=== PATIENT | female | born 1970 | race Caucasian/White ===

== ENCOUNTER 2021-07-28 18:28 | Emergency (ER) | payer OTHER, SELFPAY ==
--- NOTE | 2021-07-28 18:35 | ED.EPISTAXIS ---
HPI - Epistaxis General Chief complaint: Epistaxis Stated complaint: coughing blood, nose bleed Source: patient and RN notes reviewed Mode of arrival: ambulatory Limitations: no limitations History of Present Illness HPI Narrative: patient states that she was sitting at home when she felt something in the back of her throat, she coughed and noticed blood on the tissue. She then wipe her nose and noticed that there was blood coming out of her left nostril. She came here to get it evaluated but she says it is no longer bleeding. She had a history of some vertigo with fluid behind her eardrum and was put on Flonase. She has stayed on the Flonase even though her ear symptoms have resolved. MD complaint: epistaxis Location: left nostril Onset (ago): hour(s) (1) Duration: now resolved Treatment prior to arrival: other (None) Related Data Home Medications Medication Instructions Recorded Confirmed acyclovir 400 mg PO TID 11/08/19 11/08/19 amitriptyline 25 mg PO DAILY 11/08/19 11/08/19 atorvastatin 20 mg PO DAILY 11/08/19 11/08/19 estradiol 1 mg PO DAILY 11/08/19 11/08/19 lisinopril 20 mg PO BID 11/08/19 11/08/19 omeprazole 20 mg PO DAILY 11/08/19 11/08/19 promethazine 12.5 mg PO TID PRN 11/08/19 11/08/19 Allergies Allergy/AdvReac Type Severity Reaction Status Date / Time amoxicillin Allergy Nausea and Verified 07/28/21 18:56 Vomiting codeine Allergy Rash Verified 11/08/19 22:15 doxycycline [From Vibramycin] Allergy Hives Verified 07/28/21 18:56 Penicillins Allergy Rash Verified 11/08/19 22:15 hydrocodone AdvReac Nausea and Verified 07/28/21 18:56 Vomiting Review of Systems Review of Systems: All systems reviewed & are unremarkable except as noted in HPI and below Constitutional: Constitutional: Denies chills and Denies fever(s) PMFSH Past Medical History Medical History (Updated 07/28/21 @ 19:02 by Silviano Borrero MD) Burning mouth syndrome Depression Hyperlipidemia Hypertension Migraine Surgical History Surgical History (Updated 07/28/21 @ 19:02 by Silviano Borrero MD) H/O hysterectomy for benign disease H/O knee surgery Social History Social History (Updated 07/28/21 @ 19:02 by Silviano Borrero MD) Smoking status: Never smoker Alcohol intake: never Substance use: never Exam Const: General: healthy appearing and no acute distress Nutritional Appearance: well nourished Orientation/consciousness: patient oriented x3 HENMT: Head: normal to inspection Ears: external ears normal General nose exam: Normal external nose present, Abnormal mucous membranes and turbinates present boggy on the left and no epistaxis Face and sinus: normal facial exam Mouth: Yes moist mucous membranes Throat: posterior oropharynx normal and uvula midline Eyes: Conjunctivae: conjunctivae normal Pupils: Equal, round and reactive pupils present EOM: EOMs intact bilaterally Neck: Neck: normal visual inspection Resp: Effort & Inspection: normal respiratory effort Auscultation: clear to auscultation bilaterally Cardio: Rate: regular rate Rhythm: regular rhythm GI: GI Palp: Yes Soft to palpation and No Tenderness to palpation present (GI) Auscultation: normal bowel sounds Back/Spine/Pelvis: Cervical Spine: cervical ROM normal Thoracic/Lumbar Spine: thoraco-lumbar ROM normal Skin: General skin exam: normal color Rashes: no rashes Neuro: General: patient oriented x3, moves all extremities, no meningeal signs and no focal motor deficits Speech: normal speech Gait exam (Neuro): Normal gait present Extrem: General: normal to inspection and no clubbing, cyanosis or edema Psych: Appearance: grossly normal and well kempt Mental Status: mental status grossly normal Affect: normal affect Attitude: cooperative Thought content: Yes Normal thought content present Discharge Plan Discharge Clinical Impression: Epistaxis Patient Disposition: Home, Self-Care Condition: Improved Instructions:
[2021-07-28 18:51] VITALS: BP 174/95; PULSE 74; RESP 20; TEMP 36.9; O2SAT 99
[2021-07-28 19:17] VITALS: BP 158/86; PULSE 70; RESP 20; TEMP 37; O2SAT 99
== END 2021-07-28 19:19 | disposition home or self-care (01) ==
PROVIDERS: Emergency Provider Emergency Medicine; PCP Family Medicine
DX: R04.0 Epistaxis (principal)
CPT/HCPCS: 99281; 99282

== ENCOUNTER 2021-12-04 13:16 | Outpatient (CLI) | payer OTHER, SELFPAY ==
[2021-12-04 15:09] LABS: SARS-CoV-2 Ag Negative (Negative)
== END 2021-12-04 13:17 | disposition home or self-care (01) ==
LOC: CHSLAB 13:18
PROVIDERS: PCP Family Medicine; Visit Provider Family Medicine
DX: Z20.822 Contact with and (suspected) exposure to COVID-19 (principal)
CPT/HCPCS: 87426; C9803

== ENCOUNTER 2022-07-21 12:41 | Emergency (ER) | payer OTHER, SELFPAY ==
[2022-07-21 12:43] VITALS: BP 178/82; PULSE 90; RESP 20; TEMP 36.6; O2SAT 98
[2022-07-21 14:15] VITALS: BP 153/76; PULSE 75; RESP 20; TEMP 36.6; O2SAT 97
--- NOTE | 2022-07-21 14:18 | ED.GENADULT ---
HPI - General Adult General Chief complaint: Unspecified Stated complaint: HIGH BLOOD PRESSURE Time Seen by Provider: 07/21/22 12:45 Source: patient and RN notes reviewed Mode of arrival: ambulatory Limitations: no limitations History of Present Illness MD complaint: elevated BP, now better Onset (ago): hour(s) (5) Radiation: non-radiation Severity: mild Quality: other (pt was asymptomatic in the ED.) Pain Consistency: other (none.) Relieving factors: none Exacerbating factors: none Associated symptoms: denies other symptoms Treatments prior to arrival: none Related Data Home Medications Medication Instructions Recorded Confirmed acyclovir 400 mg tablet 400 mg PO TID 11/08/19 07/21/22 amitriptyline 25 mg tablet 25 mg PO DAILY 11/08/19 07/21/22 atorvastatin 20 mg tablet 20 mg PO DAILY 11/08/19 07/21/22 estradiol 1 mg tablet 0.5 mg PO DAILY 11/08/19 07/21/22 lisinopril 20 mg tablet 20 mg PO BID 11/08/19 07/21/22 omeprazole 20 mg capsule,delayed 20 mg PO DAILY 11/08/19 07/21/22 release promethazine 25 mg tablet 12.5 mg PO TID 11/08/19 07/21/22 amlodipine 2.5 mg tablet 2.5 mg PO DAILY 07/21/22 07/21/22 cetirizine 10 mg BYMOUTH DAILY 07/21/22 07/21/22 Allergies Allergy/AdvReac Type Severity Reaction Status Date / Time amoxicillin Allergy Nausea and Verified 07/28/21 18:56 Vomiting codeine Allergy Rash Verified 11/08/19 22:15 doxycycline [From Vibramycin] Allergy Hives Verified 07/28/21 18:56 Penicillins Allergy Rash Verified 11/08/19 22:15 hydrocodone AdvReac Nausea and Verified 07/28/21 18:56 Vomiting Review of Systems Review of Systems: All systems reviewed & are unremarkable except as noted in HPI and below Constitutional: Constitutional: Reports no additional constitutional complaints Eyes: Eyes: Reports no additional eye complaints ENT: Reports system reviewed and no additional complaints, except as documented Cardiovascular: Cardiovascular: Reports no additional cardiovascular complaints Respiratory: Respiratory: Reports no additional respiratory complaints Gastrointestinal: Gastrointestinal: Reports no additional gastrointestinal complaints Genitourinary: Genitourinary: Reports no additional female genitourinary complaints Musculoskeletal: Musculoskeletal: Reports no additional musculoskeletal complaints Integumentary/Breasts: Skin/Breast: Reports system reviewed and no additional complaints, except as docu Neurologic: Reports system reviewed and no additional complaints, except as documented Psychiatric: Psychiatric: Reports no additional psychiatric complaints Endocrine: Endocrine: Reports no additional endocrine complaints Hematologic/Lymphatic: Hematologic/Lymphatic: Reports no additional hematologic/lymphatic complaints Allergic/Immunologic: Allergic/Immunologic: Reports no additional allergic/immunologic complaints PMFSH Past Medical History Medical History Burning mouth syndrome Depression Hyperlipidemia Hypertension Migraine Surgical History Surgical History H/O hysterectomy for benign disease H/O knee surgery Social History Social History Smoking status: Never smoker Alcohol intake: never Substance use: never Exam Const: General: healthy appearing and no acute distress Nutritional Appearance: well nourished Orientation/consciousness: patient oriented x3 Limitations: no limitations HENMT: Head: normal to inspection Ears: external ears normal, TM's normal bilaterally and EAC's normal General nose exam: Normal external nose present and Normal nares present Face and sinus: normal facial exam and sinuses nontender Mouth: Yes Normal oral and palatal mucosa present and Yes moist mucous membranes Teeth and gingiva: dentition normal Throat: posterior oropharynx normal Eyes: Conjunctiva
== END 2022-07-21 14:20 | disposition home or self-care (01) ==
PROVIDERS: Emergency Provider Emergency Medicine; PCP Family Medicine
DX: I10 Essential (primary) hypertension (principal)
CPT/HCPCS: 99281

== ENCOUNTER 2023-01-22 11:15 | Emergency (ER) | payer OTHER, SELFPAY ==
--- NOTE | ~2023-01-22 | XR_ITS ---
XR chest 2V DATE: 01/22/2023 11:46 INDICATION: Cough, body aches, nausea and vomiting, burning sensation TECHNIQUE: PA and lateral views COMPARISON: None available from PACS at this time FINDINGS: Normal heart size. Aortic arch calcification. No hilar or mediastinal enlargement. No pulmo nary infiltrate or consolidation, pleural effusion or pulmonary vascular congestion or pneumothorax i s detected. Included skeletal structures are unremarkable other than minimal thoracic dextroscoliosis. IMPRESSION: No active cardiopulmonary disease Aortic arch calcification Reviewed, dictated and finalized at location A. UCT SUPPORT REP
[2023-01-22 11:15] VITALS: BP 179/79; PULSE 107; PULSE 108; RESP 20; TEMP 37.4; O2SAT 100
--- NOTE | 2023-01-22 11:56 | ED.GENADULT ---
HPI - General Adult General Chief complaint: Upper Respiratory Infection Stated complaint: cough; back pain Time Seen by Provider: 01/22/23 11:27 Source: patient Mode of arrival: ambulatory Limitations: no limitations History of Present Illness HPI narrative: 52-year-old white female complains of nonproductive cough that started this morning with nasal congestion. She is also complaining of right lower back pain along with her chronic lower back pain for which she has not taken anything for pain. She has a history of irritable bowel syndrome has had some diarrhea this morning which is not unusual for her. Denies any bleeding or bruising melena or blood in her stool. Denies any chest pain except when she coughs. Denies any fever rash itching problems voiding or any other complaints. Says she has history of hypertension has swelling in her legs sometimes from amlodipine. Her primary care provider's attempting to change her blood pressure medicines recently. Related Data Home Medications Medication Instructions Recorded Confirmed acyclovir 400 mg tablet 400 mg PO TID 11/08/19 07/21/22 amitriptyline 25 mg tablet 25 mg PO DAILY 11/08/19 07/21/22 atorvastatin 20 mg tablet 20 mg PO DAILY 11/08/19 07/21/22 omeprazole 20 mg capsule,delayed 20 mg PO DAILY 11/08/19 07/21/22 release promethazine 25 mg tablet 12.5 mg PO TID 11/08/19 07/21/22 amlodipine 2.5 mg tablet 2.5 mg PO DAILY 07/21/22 07/21/22 cetirizine 10 mg BYMOUTH DAILY 07/21/22 07/21/22 irbesartan 150 1 tablet PO DAILY 01/22/23 01/22/23 mg-hydrochlorothiazide 12.5 mg tablet Allergies Allergy/AdvReac Type Severity Reaction Status Date / Time amoxicillin Allergy Nausea and Verified 01/22/23 11:27 Vomiting codeine Allergy Rash Verified 01/22/23 11:27 doxycycline [From Vibramycin] Allergy Hives Verified 01/22/23 11:27 Penicillins Allergy Rash Verified 01/22/23 11:27 hydrocodone AdvReac Nausea and Verified 01/22/23 11:27 Vomiting Review of Systems Constitutional: Constitutional: Denies chills, Denies fatigue, Denies fever(s) and Denies weakness Eyes: Eyes: Denies no additional eye complaints ENT: Reports system reviewed and no additional complaints, except as documented Cardiovascular: Cardiovascular: Reports as per HPI Respiratory: Respiratory: Reports as per HPI and Denies dyspnea Gastrointestinal: Gastrointestinal: Reports no additional gastrointestinal complaints Comments: Had some nausea this morning without vomiting Genitourinary: Genitourinary: Reports as per HPI Musculoskeletal: Musculoskeletal: Reports back pain and Denies myalgias Integumentary/Breasts: Skin/Breast: Reports as per HPI Neurologic: Denies weakness Endocrine: Endocrine: Reports no additional endocrine complaints Hematologic/Lymphatic: Hematologic/Lymphatic: Reports as per HPI PMFSH Past Medical History Medical History Burning mouth syndrome Depression Hyperlipidemia Hypertension Migraine Surgical History Surgical History H/O hysterectomy for benign disease H/O knee surgery Social History Social History Smoking status: Never smoker Alcohol intake: never Substance use: never Comments history of hypertension interval bowel syndrome Exam Const: General: healthy appearing Nutritional Appearance: well nourished Orientation/consciousness: patient oriented x3 Limitations: no limitations HENMT: Head: normal to inspection Face/Nose/Sinus: Normal external nose present Face and sinus: normal facial exam Mouth: Yes Normal oral and palatal mucosa present, Yes lip normal and Yes moist mucous membranes Teeth and gingiva: dentition normal Throat: posterior oropharynx normal Eyes: Conjunctivae: conjunctivae normal Pupils: Equal, round and reactive pupils present EOM: EOM
[2023-01-22 12:14] LABS: Influenza A QL RT-PCR Negative (Negative); Influenza B QL RT-PCR Negative (Negative); SARS-CoV-2 RNA PCR Positive (Negative)
[2023-01-22 12:18] LABS: RSV RNA, RT-PCR Negative (Negative)
[2023-01-22 12:41] VITALS: BP 162/79; PULSE 106; RESP 18; TEMP 37; O2SAT 100
== END 2023-01-22 12:42 | disposition home or self-care (01) ==
PROVIDERS: Emergency Provider Emergency Medicine; PCP Family Medicine
DX: U07.1 COVID-19 (principal); I10 Essential (primary) hypertension; E78.5 Hyperlipidemia, unspecified; F32.A Depression, unspecified
CPT/HCPCS: 71046; 87637; 99283

== ENCOUNTER 2023-08-10 09:21 | Outpatient (CLI) | payer OTHER, SELFPAY ==
--- NOTE | ~2023-08-10 | US_ITS ---
US pelvic limited 08/10/2023 09:45 Indication: Pelvic pressure and female Procedure: High-resolution Limited ultrasound of the pelvis using transabdominal technique Comparison: No prior studies for comparison. Findings: Bladder wall is normal with a volume of 423 cc prevoid. No post void residual. No focal jonnathan dder wall abnormalities. No abnormal extraluminal masses or fluid collections. Impression: 1: Unremarkable limited pelvic ultrasound. No significant post void residual. Reviewed, dictated and finalized at location B. Impression: 1: Unremarkable limited pelvic ultrasound. No significant post void residual.
== END 2023-08-10 09:22 | disposition home or self-care (01) ==
LOC: CHSIMG 09:25
PROVIDERS: PCP Family Medicine
DX: R10.2 Pelvic and perineal pain (principal)
CPT/HCPCS: 76857

== ENCOUNTER 2024-06-26 14:10 | Outpatient (CLI) | payer OTHER, SELFPAY ==
--- NOTE | ~2024-06-26 | MM_ITS ---
EXAMINATION: MM screening [facility] BI w [facility] HISTORY: Screening TECHNIQUE: Craniocaudal and mediolateral oblique 3-D tomosynthesis images were obtained and synthetic 2-D images were generated. CAD analysis was submitted and interpreted. COMPARISON: No prior mammogram is available for comparison at this institution. BREAST PARENCHYMAL COMPOSITION: Not dense: There are scattered areas of fibroglandular density. FINDINGS: There is no evidence of suspicious mass, calcification, or architectural distortion to sugg est malignancy in either breast. There has been no suspicious interval change. IMPRESSION: 1. No mammographic evidence of malignancy. 2. Recommend routine screening mammography in one year. BI-RADS Category 1: Negative Reviewed, dictated and finalized at location B.
== END 2024-06-26 14:11 | disposition home or self-care (01) ==
PROVIDERS: PCP Nurse Practitioner Family; Visit Provider Nurse Practitioner Family
DX: Z12.31 Encounter for screening mammogram for malignant neoplasm of breast (principal)
CPT/HCPCS: 77063; 77067

== ENCOUNTER 2024-11-14 09:57 | Outpatient (RCR) | payer OTHER, SELFPAY ==
--- NOTE | 2024-11-14 10:49 | PTOPEVAL1 ---
Assessment and note entered by Gilberto Craig Evaluation Information Assessment Status Evaluation ICD-10 Condition Codes (PT) Pain in low back M54.50 Onset 11/09/24 Subjective Information Pt. reports that she has had low back pain for many years. She states that she also has a tear in the labrum of the right hip that limits her ability to lift the right leg. She states that her low back pain is constant. She will have pain that will radiate into the right l.e. She states that pain intensity can vary. She attempts to walk 1 mile a day, but states that the pain has began to limit her ability to walk 1 mile. She reports sitting in 1 position too long will also increase her pain. She reports that she has undergone MRI, which revealed degeneration of the cervical spine. She states that her goal is to decrease her low back pain. Reported Pain Level Pain Score 4: Self Report Assessment PT Clinical Summary Pt. is a 54 year old female who enters the clinic with low back pain. She presents with impaired postural awareness, impaired l.e. strength, impaired abdominal strength, impaired flexibility and pain on this date. Continued skilled PT is indicated in order to improve these areas to allow the pt. to be able to complete all IADL's with improved comfort and efficiency. Plan of Care Interventions Electrical Stimulation,Gait Training,Hot Pack/Cold Pack,Manual Therapy,Mechanical Traction,Neuro Re- education,Patient/Caregiver Education,Therapeutic Activities,Therapeutic Exercise PT Services Indicated Yes Treatment Frequency and 2x/week x 12 visits Duration These treatments will address the objective and functional deficits as defined above. The patient will be advanced safely and appropriately in order for the patient to progress towards his/her prior level of function. Additional exercises will be introduced and as well as a comprehensive home exercise program upon discharge, if needed, ?to ensure carryover of functional gains achieved in the clinic. This treatment plan has been reviewed and agreement upon by the patient.
--- NOTE | 2024-12-13 10:50 | OPREHPOC ---
Outpatient Therapy Plan of Care This is a Multidisciplinary Plan of Care that may contain components documented by all disciplines (PT, OT, and ST.) PT Problem 1 PT Problem #1 Knowledge Deficit PT Goal 1 Goal / Goal Update Pt. will be independent with a HEP addressing core strength and stability. Target Visit 2 Progress Met PT Problem 2 PT Problem #2 Impaired Strength PT Goal 1 Goal / Goal Update Pt. will present with good upper and lower abdominal strength Pt. will present with 4+/5 gross proximal l.e. strength. partially met Pt. will improve muscle strength in order to improve standing endurance and improve pelvic stability to maintain improved lumbar positioning. Target Visit 12 Progress Partially Met PT Problem 3 PT Problem #3 Impaired Functional Mobility PT Goal 1 Goal / Goal Update Pt. will present with less than 30% limitation the the Oswestry indicating significant improvement in overall function pt. will reports being able to ambulate a distance of 1 mile with 5/10 pain levels at worst to return to daily exercise. Target Visit 12 Progress Not Met PT Problem 4 PT Problem #4 Impaired Safety Awareness PT Goal 1 Goal / Goal Update Pt. will demonstrate ability to safely lift a small object from floor to waist weight up to 10# without pain increase. Target Visit 12 Progress Met
--- NOTE | 2024-12-13 10:51 | PTOPPROGNS ---
Assessment and note entered by JT File, PT Evaluation Information Assessment Status Progress ICD-10 Condition Codes (PT) Pain in low back M54.50 Onset 11/09/24 Subjective Information patient reports in general she believes she is better. she reports she feels she has more movement, but does still get sore. she reports she is able to turkey picker her grandkids. she reports she would like to get rid of some of her soreness still, and improve her strength further. patient reports she has still not gotten back to walking for exercise with her . Assessment PT Clinical Summary mrs. kenney presents to skilled PT for her 10th skilled therapy visit for lower back and R hip pain. she presents today with improved strength and decreased pain. she has made partial achievement and progress towards all goals today. she would benefit from continued skilled PT to address her core and LE weakness, remaining pain, and functional activity deficits of the lower back and R hip to achieve goals and return to prior level functional activity performance/quality of life. patient was progressed in exercise repetitions for increased strength today without increased pain. Plan of Care Interventions Electrical Stimulation,Gait Training,Hot Pack/Cold Pack,Manual Therapy,Mechanical Traction,Neuro Re- education,Patient/Caregiver Education,Therapeutic Activities,Therapeutic Exercise PT Services Indicated Yes Treatment Frequency and continue per initial POC Duration These treatments will address the objective and functional deficits as defined above. The patient will be advanced safely and appropriately in order for the patient to progress towards his/her prior level of function. Additional exercises will be introduced and as well as a comprehensive home exercise program upon discharge, if needed, ?to ensure carryover of functional gains achieved in the clinic. This treatment plan has been reviewed and agreement upon by the patient.
--- NOTE | 2024-12-19 12:30 | OPREHPOC ---
Outpatient Therapy Plan of Care This is a Multidisciplinary Plan of Care that may contain components documented by all disciplines (PT, OT, and ST.) PT Problem 1 PT Problem #1 Knowledge Deficit PT Goal 1 Goal / Goal Update Pt. will be independent with a HEP addressing core strength and stability. Target Visit 2 Progress Met PT Problem 2 PT Problem #2 Impaired Strength PT Goal 1 Goal / Goal Update Pt. will present with good upper and lower abdominal strength. not met Pt. will present with 4+/5 gross proximal l.e. strength. partially met Pt. will improve muscle strength in order to improve standing endurance and improve pelvic stability to maintain improved lumbar positioning. met Target Visit 12 Progress Partially Met PT Problem 3 PT Problem #3 Impaired Functional Mobility PT Goal 1 Goal / Goal Update Pt. will present with less than 30% limitation the the Oswestry indicating significant improvement in overall function. met pt. will reports being able to ambulate a distance of 1 mile with 5/10 pain levels at worst to return to daily exercise. not attempted due to outside temps Target Visit 12 Progress Partially Met PT Problem 4 PT Problem #4 Impaired Safety Awareness PT Goal 1 Goal / Goal Update Pt. will demonstrate ability to safely lift a small object from floor to waist weight up to 10# without pain increase. Target Visit 12 Progress Met
--- NOTE | 2024-12-19 12:30 | PTOPDC ---
Assessment and note entered by JT File, PT Evaluation Information Assessment Status Discharge ICD-10 Condition Codes (PT) Pain in low back M54.50 Onset 11/09/24 Subjective Information she reports the back is not too bad today. she reports she has been playing with her grandkids today at home. she reports her pain is pretty low right now. she reports she feels better in therapy , and then is worse later on when she moves a certain way. she reports she is more bothered by her neck and shoulders lately. Reported Pain Level Pain Score 1: Self Report Assessment PT Clinical Summary mrs. kenney presents to skilled PT with decreased pain in the lower back and improved functional activity performance at home. she has met or made partial progress towards all goals for skilled PT of the lower back. she is ready to DC therapy for the lower back. she is compliant with and will continue her HEP of the lower back at home. Plan of Care PT Services Indicated Yes
== END 2024-12-19 13:00 | disposition home or self-care (01) ==
LOC: CHSPT 09:57
DX: S76.812S Strain of other specified muscles, fascia and tendons at thigh level, left thigh, sequela (principal); M47.816 Spondylosis without myelopathy or radiculopathy, lumbar region; M51.360 Other intervertebral disc degeneration, lumbar region with discogenic back pain only
CPT/HCPCS: 97014; 97110; 97140; 97161; G0283

== ENCOUNTER 2024-12-21 13:43 | Outpatient (RCR) | payer OTHER, SELFPAY ==
--- NOTE | 2024-12-21 15:59 | OPREHPOC ---
Outpatient Therapy Plan of Care This is a Multidisciplinary Plan of Care that may contain components documented by all disciplines (PT, OT, and ST.) PT Problem 1 PT Problem #1 Knowledge Deficit PT Goal 1 Goal / Goal Update 1. independent and compliant with HEP Target Visit 4 PT Problem 2 PT Problem #2 Pain PT Goal 1 Goal / Goal Update 1. decrease pain at worst in the neck and shoulders to 2/10 Target Visit 8 PT Problem 3 PT Problem #3 Impaired Strength PT Goal 1 Goal / Goal Update 1. improve deep neck flex strength to 4+/5 or better 2. improve bilateral shoulder strength to 5/5 overall Target Visit 8 PT Problem 4 PT Problem #4 Impaired Range of Motion PT Goal 1 Goal / Goal Update 1. 70 degrees active R cervical rotation 2. 35 degrees active L cervical side bending Target Visit 8 PT Problem 5 PT Problem #5 Impaired Functional Mobility PT Goal 1 Goal / Goal Update 1. patient to watch phone and read for 30 minutes without increased pain 2. 50% reduction in head frequency and intensity 3. NDI and quick dash to display 20% or less functional deficits each Target Visit 8
--- NOTE | 2024-12-21 15:59 | PTOPEVAL1 ---
Assessment and note entered by JT File, PT Evaluation Information Assessment Status Evaluation ICD-10 Condition Codes (PT) Cervicalgia M54.2,Pain in right shoulder M25.511, Pain in left shoulder M25.512 Onset 12/14/24 Subjective Information patient reports she has had neck pain for quite some time. she reports it does get worse with prolonged activity, and affects her ability to look at her phone at times. she does not get NTB into the UE's other than those symptoms from her bilateral carpal tunnel. she reports she has been through healthcare administrator, but reports she does not feels this is completely resolving her symptoms/issues. Reported Pain Level Pain Score 4: Self Report Assessment PT Clinical Summary mrs. kenney presents to skilled PT services for evaluation and treatment of neck and shoulder pain . she presents today with deficits in cervical rom , cervical strength, posture, and functional activity performance. signs and symptoms are consistent with cervicalgia and R UT strain. she would benefit from continued skilled PT to address her objective/functional deficits and return to her prior level functional activity performance/ quality of life. Plan of Care Interventions Electrical Stimulation,Hot Pack/Cold Pack,Manual Therapy,Mechanical Traction,Neuro Re-education, Patient/Caregiver Education,Therapeutic Activities ,Therapeutic Exercise PT Services Indicated Yes Treatment Frequency and 2x weekly for 8 visits Duration These treatments will address the objective and functional deficits as defined above. The patient will be advanced safely and appropriately in order for the patient to progress towards his/her prior level of function. Additional exercises will be introduced and as well as a comprehensive home exercise program upon discharge, if needed, ?to ensure carryover of functional gains achieved in the clinic. This treatment plan has been reviewed and agreement upon by the patient.
--- NOTE | 2025-01-14 12:21 | PTOPDC ---
Assessment and note entered by Gilberto Craig Evaluation Information Assessment Status Progress ICD-10 Condition Codes (PT) Cervicalgia M54.2,Pain in right shoulder M25.511, Pain in left shoulder M25.512 Onset 12/14/24 Subjective Information Pt. reports that she has improved ROM since beginning therapy. She states that she can turn the head from side to side with less pain. she has still been undergoing healthcare network consultant and notices pain the upper traps. She states that she is doing a daily exercise program at this time. She states that she still has trouble holding her phone for long periods of time due to weakness in her right hand. She reports she has been informed that she needs carpal tunnel surgery, but states that she also has disc herniation Reported Pain Level Pain Score 3: Self Report Assessment PT Clinical Summary Pt. has attended a total of 8 treatment sessions. While range of motion and strength have improved, she continues to present with fluctuating pain. At this time encouraged the pt. to continue with her HEP and continue focus on postural awareness. She will be discharged from our care at this time . Plan of Care PT Services Indicated No
== END 2025-01-14 13:00 | disposition home or self-care (01) ==
LOC: CHSPT 13:43
PROVIDERS: Visit Provider Family Medicine
DX: M54.9 Dorsalgia, unspecified (principal)
CPT/HCPCS: 97014; 97110; 97140; 97161; G0283

== ENCOUNTER 2025-03-29 16:49 | Emergency (ER) | payer OTHER, SELFPAY ==
[2025-03-29 16:49] VITALS: BP 185/83; PULSE 88; RESP 16; TEMP 36.2; O2SAT 100
--- NOTE | 2025-03-29 16:55 | ED.FEMALEGU ---
HPI - Female Genitourinary General Chief complaint: Urogenital-Female Stated complaint: possible UTI Time Seen by Provider: 03/29/25 16:54 Source: patient Mode of arrival: ambulatory Limitations: no limitations History of Present Illness HPI Narrative: Patient is a 54-year-old female with little to no pain and specifically here for blood in the urine and UTI symptoms of dysuria. This is similar to prior UTI. MD elicited complaint: dysuria and UTI Pertinent past history: recurrent UTIs ( With blood) and other ( patient does have a history of kidney stones but has no symptoms or signs similar to prior kidney stone passing; this is similar to only UTI symptoms) Onset (ago): day(s) ( 1) Location of symptoms: suprapubic ( slight pressure) Severity: mild Female Urogenital Radiation: Non-Radiating Severity scale (1-10): 1 Quality of pain: dull Consistency: intermittent Vaginal discharge: none Vaginal bleeding: none Urinary symptoms: Dysuria Exacerbating factors: none Relieving factors: none Associated symptoms: denies other symptoms Treatment prior to arrival: none Sexual activity: No Patient : No Related Data Home Medications ?Medication ?Instructions ?Recorded ?Confirmed ?Last Taken ?Type acyclovir 400 mg tablet 400 mg PO TID 11/08/19 01/22/23 07/28/21 History amitriptyline 25 mg tablet 25 mg PO DAILY 11/08/19 01/22/23 07/28/21 History atorvastatin 20 mg tablet 20 mg PO DAILY 11/08/19 01/22/23 07/28/21 History omeprazole 20 mg capsule,delayed 20 mg PO DAILY 11/08/19 01/22/23 07/28/21 History release promethazine 25 mg tablet 12.5 mg PO TID 11/08/19 01/22/23 11/08/19 History amlodipine 2.5 mg tablet 2.5 mg PO DAILY 07/21/22 01/22/23 Unknown History cetirizine 10 mg BYMOUTH DAILY 07/21/22 01/22/23 Unknown History irbesartan 150 1 tablet PO DAILY 01/22/23 01/22/23 Unknown History mg-hydrochlorothiazide 12.5 mg tablet Allergies Allergy/AdvReac Type Severity Reaction Status Date / Time sulfamethoxazole (From Allergy Severe Anaphylaxis Verified 03/29/25 17:14 Bactrim) trimethoprim (From Bactrim) Allergy Severe Anaphylaxis Verified 03/29/25 17:14 amoxicillin Allergy Nausea and Verified 03/29/25 17:14 Vomiting codeine Allergy Rash Verified 03/29/25 17:14 doxycycline (From Vibramycin) Allergy Hives Verified 03/29/25 17:14 Penicillins Allergy Rash Verified 03/29/25 17:14 hydrocodone AdvReac Nausea and Verified 03/29/25 17:14 Vomiting Review of Systems Review of Systems: All systems reviewed & are unremarkable except as noted in HPI and below Constitutional: Constitutional: Reports no additional constitutional complaints Eyes: Eyes: Reports no additional eye complaints ENT: Reports system reviewed and no additional complaints, except as documented Cardiovascular: Cardiovascular: Reports no additional cardiovascular complaints Respiratory: Respiratory: Reports no additional respiratory complaints Gastrointestinal: Gastrointestinal: Reports no additional gastrointestinal complaints Genitourinary: Genitourinary: Reports no additional female genitourinary complaints Musculoskeletal: Musculoskeletal: Reports no additional musculoskeletal complaints Integumentary/Breasts: Skin/Breast: Reports system reviewed and no additional complaints, except as docu Neurologic: Reports system reviewed and no additional complaints, except as documented Psychiatric: Psychiatric: Reports no additional psychiatric complaints Endocrine: Endocrine: Reports no additional endocrine complaints Hematologic/Lymphatic: Hematologic/Lymphatic: Reports no additional hematologic/lymphatic complaints Allergic/Immunologic: Allergic/Immunologic: Reports no additional allergic/immunologic complaints PMFSH Past Medical History Medical History Burning mouth syndrome Migraine Hyperlipidemia Hypertension Depression Surgical History Surgical History H/O knee surgery H/O hysterectomy for benign disease Social History Social History Smoking status: Never smoker Alcohol intake: never Substance use: never Exam Const: General: healthy appearing Nutritional Appearance: well nourished Orientation/consciousness: patient oriented x3 HENMT: Head: normal to inspection Ears: external ears normal Face/Nose/Sinus: Normal external nose present Eyes: Conjunctivae: conjunctivae normal Pupils: Equal, round and reactive pupils present EOM: EOMs intact bilaterally Neck: Neck: normal visual inspection Chest: Chest palpation & inspection: normal inspection of the chest Resp: Effort & Inspection: normal respiratory effort and not labored Auscultation: clear to auscultation bilaterally and no crackles Cardio: Rate: regular rate Rhythm: regular rhythm Heart sounds: no murmurs GI: Inspection: non-distended GI Palp: Yes Soft to palpation and No Tenderness to palpation present (GI) Auscultation: normal bowel sounds : General: Yes bladder normal to palpation Back/Spine/Pelvis: Back: no CVA tenderness Skin: General skin exam: normal color Rashes: no rashes Wounds: no wounds Neuro: General: patient oriented x3 Cranial nerves: Yes Nystagmus not present Speech: normal speech Gait exam (Neuro): Normal gait present Extrem: General: normal to inspection Psych: Appearance: grossly normal Mental Status: mental status grossly normal Affect: normal affect Attitude: cooperative Course Vital Signs Vital signs: Vital Signs Temperature 36.2 C L 03/29/25 16:49 Pulse Rate 88 03/29/25 16:49 Respiratory Rate 16 03/29/25 16:49 Blood Pressure 185/83 H 03/29/25 16:49 Pulse Oximetry 100 03/29/25 16:49 Oxygen Delivery Room Air 03/29/25 16:49 Temperature 36.2 C L 03/29/25 16:49 Pulse Rate 88 03/29/25 16:49 Respiratory Rate 16 03/29/25 16:49 Blood Pressure 185/83 H 03/29/25 16:49 Pulse Oximetry 100 03/29/25 16:49 Oxygen Delivery Room Air 03/29/25 16:49 MDM - Female Genitourinary MDM Narrative Medical decision making narrative: patient is a 54-year-old female with recurrent UTI symptoms at this time here for testing. We will do UA. We discussed getting a CT scan after the urine showed lots of blood but she said that is typical of her UTIs. She also has no symptoms of kidney stones at this time to include pain. She was told to come back to the emergency room with any worsening symptoms or beginning of pain. No difficulties of urination. Lab Data Attestation: I reviewed the patient's lab results. Labs: Lab Results 03/29/25 Range/Units 16:55 Urine Color Red A (Yellow) Urine Appearance Clear (Clear) Urine pH 6.5 (5.0-8.0) Ur Specific [place] 1.010 (1.010-1.020) Urine Protein 1+ H (Negative) Urine Glucose (UA) Negative (Negative) Urine Ketones Negative (Negative) Ur Blood (Man) 3+ H (Negative) Urine Nitrate Negative (Negative) Urine Bilirubin Negative (Negative) Urine Urobilinogen 0.2 (0.2-1.0) mg/dL Leukocyte Esterase Rfl Trace H (Negative) CALEB/UL Urine RBC >75 H (0-2) /hpf Urine WBC 0-3 (0-3) /hpf Ur Squamous Epith Cells Few (Few) /hpf Urine Bacteria None seen (None) /hpf Ur Oval Fat Bodies None (None) /lpf Discharge Plan Discharge Clinical Impression: UTI (urinary tract infection) Qualifiers: Urinary tract infection type: acute cystitis Hematuria presence: with hematuria Qualified Code(s): N30.01 - Acute cystitis with hematuria Patient Disposition: Home Condition: Stable Instructions: Antibiotic Form, Urinary Tract Infection in Women (ED) Patient Language: Latvian Prescriptions: New ciprofloxacin HCl [Cipro] 500 mg tablet 500 mg PO BID 7 Days Qty: 14 0RF No Action amlodipine 2.5 mg tablet 2.5 mg PO DAILY cetirizine 10 mg BYMOUTH DAILY irbesartan-hydrochlorothiazide 150-12.5 mg tablet 1 tablet PO DAILY atorvastatin 20 mg tablet 20 mg PO DAILY acyclovir 400 mg tablet 400 mg PO TID amitriptyline 25 mg tablet 25 mg PO DAILY promethazine 25 mg tablet 12.5 mg PO TID omeprazole 20 mg capsule,delayed release(DR/EC) 20 mg PO DAILY Follow-up/Referrals: Darian Duarte M.D. [Primary Care Provider] - Time of Disposition: 17:13
[2025-03-29 17:02] LABS: Add Urine Microscopic? YES; Appearance Urine Clear (Clear); Bilirubin Urine Negative (Negative); Blood Urine 3+ (Negative); Color Urine Red (Yellow); Glucose Urine UA Negative (Negative); Ketones Urine Negative (Negative); Leukocyte Esterase Ur Trace LEU/UL (Negative); Nitrate Urine Negative (Negative); Protein Urine 1+ (Negative); Urobilinogen Urine 0.2 mg/dL (0.2-1.0); pH Urine 6.5 (5.0-8.0)
[2025-03-29 17:11] LABS: Bacteria Urine None seen /hpf; RBC Urine >75 /hpf (0-2); Squamous Epithelial Cell Urine Few /hpf (Few); WBC Urine 0-3 /hpf (0-3)
--- OUTSIDE RECORDS SUMMARY | 2025-03-30 14:59 | XMS_ITS | Clinical Summary ---
Author Organization [facility] Address [facility] [place] [address] Care Team Providers Care Impact Retail Service Merchandiser Name Role Phone Darian Santana MD Primary Care Provider [phone] Karon Kirby MD Unavailable [phone] Kindra Rosenthal SENIOR RESEARCH FELLOW-C Unavailable [phone] Allergies Active Allergy Reactions Criticality Noted Date Comments Amoxicillin Diarrhea 03/14/2023 Codeine Nausea and Vomiting 07/26/2016 Able to take cough syrup and Tylenol # 3 Doxycycline Vomiting 07/26/2016 Penicillins Diarrhea,Nausea and Vomiting,Unknown 07/26/2016 Sulfamethoxazole-Trimet hoprim Rash Low 07/26/2016 Tramadol Itching 07/26/2016 Medications amitriptyline (ELAVIL) 25 MG tablet Take 1 tablet (25 mg total) by mouth nightly at bedtime. 3 Active omeprazole (PRILOSEC) 20 MG capsule Take 1 capsule (20 mg total) by mouth daily. 3 Active ketoconazole (NIZORAL) 2 % cream APPLY CREAM TWICE DAILY TO RASH IN SKIN FOLDS 3 Active acyclovir (ZOVIRAX) 800 MG tablet TAKE 1/2 (ONE-HALF) TABLET BY MOUTH THREE TIMES DAILY 3 Active atorvastatin (LIPITOR) 20 MG tablet Take 1 tablet (20 mg total) by mouth every evening. 3 Active promethazine (PHENERGAN) 25 MG tablet TAKE 1 TABLET BY MOUTH THREE TIMES DAILY NEEDED FOR NAUSEA AND FOR HIVES 3 Active triamcinolone (KENALOG) 0.5 % cream APPLY CREAM 2-3 TIMES DAILY 2 Active Irbesartan-hydroCH LOROthiazide 300-12.5 MG Tab Take 1 tablet by mouth daily. 3 Active clobetasol (TEMOVATE) 0.05 % cream APPLY CREAM TOPICALLY TWICE DAILY FOR 1 WEEK THEN NIGHTLY 3 Active ketoconazole (NIZORAL) 2 % shampoo APPLY SHAMPOO TWICE WEEKLY NEEDED 3 Active probiotic (FLORAJEN3) capsule 6 Active calcium, elemental, 600 MG tablet Take 2 tablets (1,200 mg total) by mouth daily. 6 Active vitamin D3, cholecalciferol, (CHOLECALCIFEROL) 1.25 mg capsule 6 Active cetirizine (ZYRTEC) 10 MG tablet Take 1 tablet (10 mg total) by mouth daily. Active Pyridoxine HCl (VITAMIN B6) 200 MG Tab Take 1 tablet by mouth daily. Active Magnesium Gluconate 250 MG Tab Take 1 tablet by mouth 2 (two) times a day. Active vitamin C (ASCORBIC ACID) 500 MG tablet Take by mouth 3 (three) times daily. 6 Active Ferrous Sulfate (IRON) 142 (45 Fe) MG Tab CR 6 Active Menaquinone-7 (VITAMIN K2 OR) Take 90 mg by mouth daily. Active Zinc 30 MG Tab Take 1 tablet by mouth daily. Active vitamin B-12 (CYANOCOBALAMIN) (CYANOCOBALAMIN) 1000 mcg tablet Take 1 tablet (1,000 mcg total) by mouth every other day. Active Homeopathic Products (AZO YEAST PLUS OR) Take 1 tablet by mouth daily. Active estradiol (ESTRACE) 0.5 MG tablet Take 1 tablet (0.5 mg total) by mouth daily. 4 Active ibuprofen (MOTRIN IB) 200 MG tablet Take 1 tablet (200 mg total) by mouth every 8 (eight) hours as needed. 6 Active ondansetron (ZOFRAN-ODT) 4 MG disintegrating tablet Take 1 tablet (4 mg total) by mouth every 12 (twelve) hours as needed for Nausea. 4 Active rizatriptan (MAXALT-DIVERSIFIED CROPS FARMER) 5 MG disintegrating tablet Take 1 tablet (5 mg total) by mouth as needed for Migraine. 4 Active diclofenac EC (VOLTAREN) 50 MG tabletIndications: Strain of iliopsoas muscle, right, sequela,Strain of iliopsoas muscle, left, sequela,Arthropath y of lumbar facet joint,Degeneration of intervertebral disc of lumbar region with discogenic back pain Take 1 tablet (50 mg total) by mouth 2 (two) times daily. 60 tablet 4 Active Active Problems No known active problems Encounters Date Type Department Care Team Description 03/14/2025 11:00 AM CDT Office Visit [facility] - [address], [address] [place] [address] Tyler Bedoya DPM Wound (Pt is here for a Lt foot wound. She states a few mo ago she noticed a new callous. She saw her pcp who suggested she come see podiatry to have it looked at. Pt states it is really painful to put wt on her Lt 5th toe without shoes. Pt is not diabetic./JRR) 03/14/2025 Travel from Last 3 Months Family History Medical History Relation Comments Hyperlipidemia Father Hypertension Father Stroke Maternal Grandfather Brain Tumor Maternal Grandmother Hypertension Mother Colon Cancer Other Breast Cancer Paternal Grandmother Bypass Paternal Grandmother Open Heart Paternal Grandmother Relation Status Comments Father Maternal Grandfather Maternal Grandmother Mother Other Paternal Grandmother Social History Tobacco Use Types Packs/Day Years Used Date Smoking Tobacco: Never Smokeless Tobacco: Never Tobacco Cessation:Counseling Given: No Alcohol Use Standard Drinks/Week Comments Not Currently 0 (1 standard drink = 0.6 oz pur e alcohol) Comments No Sex and Gender Information Value Date Recorded Sex Assigned at Female 12/20/2024 1:38 PM PERSONNEL RESEARCH SCIENTIST Legal Sex Female 8:30 PM CDT Gender Identity Not on file Sexual Orientation Not on file Last Filed Vital Signs Vital Sign Reading Time Taken Comments Blood Pressure 127/87 03/14/2025 11:23 AM CDT Pulse 83 03/14/2025 11:23 AM CDT Temperature - - Respiratory Rate 16 10/10/2024 1:32 PM PERSONNEL RESEARCH SCIENTIST Oxygen Saturation 98% 03/14/2025 11:23 AM CDT Inhaled Oxygen Concentration - - Weight 97.8 kg (215 lb 9.6 oz) 03/14/2025 11:23 AM CDT Height 160 cm (5' 3 ) 12/20/2024 1:39 PM PERSONNEL RESEARCH SCIENTIST Body Mass Index 38.19 12/20/2024 1:39 PM PERSONNEL RESEARCH SCIENTIST Plan of Treatment Health Maintenance Due Date Last Done Comments Colorectal Cancer Screening Colonoscopy (10 Years) 1970 Annual Physical 1973 Hepatitis C 1988 DTaP, Tdap and Td Vaccines (1 - Tdap) 1989 Hepatitis B Vaccines (1 of 3 - 19+ 3-dose series) 1989 Pneumococcal Vaccine: 50+ Years (1 of 1 - PCV) 2020 Zoster Vaccines (1 of 2) 2020 COVID-19 Vaccine (1 - season) 2024 PHQ-2 (Physician [place]) 11/28/2024 Mammogram Screening 06/20/2025 06/20/2023, 06/10/2022, 06/09/2021, Additional history exists Meningococcal B Vaccine Aged Out No l onger eligible based on patient's age to complete this topic Meningococcal Vaccine Aged Out No ilya lizet eligible based on patient's age to complete this topic RSV Immunizations Under 20 Months Aged Out No longer eligible based on patient's age to complete this topic Procedures Procedure Name Priority Date/Time Associated Diagnosis Comments MG SCREENING W SAMARIA ITALO DIGI Routine 06/20/2023 9:32 AM CDT Breast cancer screening from Last 3 Months or Most Recently Relevant to Health Maintenance Results * MG SCREENING W SAMARIA ITALO DIGI (06/20/2023 9:32 AM CDT) Anatomical Region Laterality Modality Breast Bilateral Mammography 06/20/2023 10:4 2 AM CDT Narrative 06/20/2023 10:46 AM CDT EXAMINATION: BILATERAL SCREENING MAMMOGRAPHY Exam Date: 06/20/2023 9:15 AM CLINICAL INDICATION: 52 years of age female routine screening. COMPARISON: Screening mammogram(s) from 05/20/2020, 06/09/2021 and 06/10/2022. TECHNIQUE: Digital CC & MLO views. Tomosynthesis imaging acquisition Study read with the assistance of a computer-aided detection system. TISSUE DENSITY: There are scattered areas of fibroglandular density. FINDINGS: Benign calcifications and axillary lymph nodes are again noted. No suspicious grouping of microcalcifications, architectural distortion, or new dominant suspicious nodule 3 dimensionally demonstrated in either breast. IMPRESSION: No interval features to suggest malignancy. In the absence of clinical symptoms, return for annual screening mammogram due in 1 year. RECOMMENDATION: Routine Screening, Bilateral in 1 year ASSESSMENT: ACR BI-RADS 2 - BENIGN FINDING(S) Ordered By: DARIAN SANTANA Interpreted By: Remy Soriano MD, 06/20/2023 10:42 AM Darian Santana MD MAMMO Final Resul t from Last 3 Months or Most Recently Relevant to Health Maintenance Insurance [facility] Care Teams Impact Retail Service Merchandiser Relationship Specialty Start Date End Date D[place] [address] [id number] PCP - General FAMILY PRACTICE 05/10/19 Karon [place] [address] [phone] INTERVENTIONAL CARDIOLOGY 03/11/23 Kindra Rosenthal NP-C [id number] [place] [address] [place] [address] Nurse Practitioner Family 03/14/23
== END 2025-03-29 17:16 | disposition home or self-care (01) ==
LOC: CHSED 17:14
PROVIDERS: Emergency Provider Emergency Medicine; PCP Family Medicine
DX: N30.01 Acute cystitis with hematuria (principal); E78.5 Hyperlipidemia, unspecified; I10 Essential (primary) hypertension
CPT/HCPCS: 81001; 99283

== ENCOUNTER 2025-06-19 15:30 | Outpatient (RCR) | payer OTHER, SELFPAY ==
--- NOTE | 2025-06-18 16:35 | PTOPEVAL1 ---
Assessment and note entered by Destinee Ayala DPT Evaluation Information Assessment Status Evaluation Diagnosis B neck and shoulder ICD-10 Condition Codes (PT) Cervicalgia M54.2 Other ICD-10 Condition Codes ( M54.9 PT) Onset 06/17/25 Subjective Information Patient reports she has chronic neck pain that travels to the B shoulders and down the back. She reports she has continued her HEP from her last bout of therapy. She reports she now feels like she is tight again. She reports that she has been mowing and that increases her pain. She reports pain with standing for prolonged periods of time, bending forward, and driving. She reports she has been seeing the chiropractor and that has helped with migraines. She reports that helps to decrease pain. Reported Pain Level Pain Score 7,3: Self Report Assessment PT Clinical Summary Mrs. Barker is a 54 year old female who presents to PT with neck and B shoulder pain. She demonstrates poor posture, decreased B UE strength and restriction at B upper traps impairing her ability to drive, mow and complete house hold tasks. She would benefit from skilled PT to address impairments and return to PLOF. Plan of Care Interventions Electrical Stimulation,Hot Pack/Cold Pack,Manual Therapy,Mechanical Traction,Neuro Re-education, Patient/Caregiver Education,Therapeutic Activities ,Therapeutic Exercise PT Services Indicated Yes Treatment Frequency and 2x weekly for 10 visits Duration These treatments will address the objective and functional deficits as defined above. The patient will be advanced safely and appropriately in order for the patient to progress towards his/her prior level of function. Additional exercises will be introduced and as well as a comprehensive home exercise program upon discharge, if needed, ?to ensure carryover of functional gains achieved in the clinic. This treatment plan has been reviewed and agreement upon by the patient.
--- NOTE | 2025-07-18 12:02 | OPREHPOC ---
Outpatient Therapy Plan of Care This is a Multidisciplinary Plan of Care that may contain components documented by all disciplines (PT, OT, and ST.) PT Problem 1 PT Problem #1 Knowledge Deficit PT Goal 1 Goal / Goal Update Patient to demonstrate independence with HEP Target Visit 5 Progress Met PT Problem 2 PT Problem #2 Pain PT Goal 1 Goal / Goal Update 1. Patient to report highest pain at 2/10 -not met 2. Patient to improve ability to perform house hold tasks for >20 min without increase in neck and shoulder pain -met for most tasks Target Visit 10 Progress Partially Met PT Problem 3 PT Problem #3 Impaired Strength PT Goal 1 Goal / Goal Update Patient to demonstrate 4+/5 B UE strength to return to lifting for house hold tasks without difficulty Target Visit 10 Progress Met PT Problem 4 PT Problem #4 Impaired Functional Mobility PT Goal 1 Goal / Goal Update 1. Patient to improve Back Index and NDI by 20% ea -not met 2. patient to report ability to mow her lawn with no increase in neck pain -met Target Visit 10 Progress Partially Met
--- NOTE | 2025-07-18 12:02 | PTOPDC ---
Assessment and note entered by Stella Hadley, PT Evaluation Information Assessment Status Discharge Diagnosis B neck and shoulder ICD-10 Condition Codes (PT) Cervicalgia M54.2 Other ICD-10 Condition Codes ( M54.9 PT) Onset 06/17/25 Subjective Information Edith reports she's been feeling better with PT. She reports feeling like she can turn her head further when driving which makes her feel safer. She has also been having an easier time mowing the lawn since she got a new mower that self propels and she just has to walk with it as it mows. She reports she does still struggle with doing the dishes as their sinks and countertops are lower than normal due to living in an accessible house, however she does what she can and paces her self so as not to over do it. She also paces herself with sweeping and mopping as well as cleaning throughout the house and she works with her on the laundry to spare her back. She has continued to perform her stretches at home as well as using modalities as needed for pain relief. Reported Pain Level Pain Score 2,2: Self Report Assessment PT Clinical Summary Mrs. Barker has attended 10 skilled PT visits for chronic neck and shoulder pain. Since beginning therapy her pain is overall reduced and she notes improved ability to turn her head while driving and less pain with household tasks. She still demonstrates tightness of the neck and upper back but has been independent with her HEP and has met or partially met all therapeutic goals. She is agreeable to continuing her HEP on her own and will be discharged this date. Plan of Care PT Services Indicated No
== END 2025-07-18 13:25 | disposition home or self-care (01) ==
LOC: CHSPT 15:30
PROVIDERS: Visit Provider Nurse Practitioner Family
DX: M54.9 Dorsalgia, unspecified (principal); M54.2 Cervicalgia
CPT/HCPCS: 97014; 97110; 97140; 97161; G0283

== ENCOUNTER 2025-07-26 09:41 | Emergency (ER) | payer OTHER, SELFPAY ==
[2025-07-26 09:46] VITALS: BP 166/82; PULSE 94; RESP 18; TEMP 36.4; O2SAT 99
--- NOTE | 2025-07-26 10:07 | ED.NECK ---
HPI - Neck Pain/Injury General Chief Complaint: Neck Pain/Injury Stated Complaint: neck and shoulder pain Time Seen by Provider: 07/26/25 09:53 Source: patient Mode of arrival: ambulatory Limitations: no limitations History of Present Illness HPI Narrative: Patient is a 54-year-old female with right neck pain for the past day. She has tried multiple home remedies without success. She sees a chiropractor. She just finished physical therapy last week. Patient presents with the right neck pain which begins at the base of the lateral right neck and extends to the right shoulder region. It specifically does not have pain in the central cervical spine or right shoulder joint. No injury. MD complaint: neck pain Onset (ago): day(s) (1) Place: home Radiation: right lateral, right shoulder and upper back Severity: moderate and constant Severity scale (1-10): 6 Quality: sharp, spasming and throbbing Duration: constant Relieving factors: none Exacerbating factors: movement of neck Context: other ( Patient has new onset right lateral neck pain that radiates to the right shoulder region but that the joint over the past day) Associated symptoms: none Treatments prior to arrival: acetaminophen and ibuprofen Related Data Home Medications ?Medication ?Instructions ?Recorded ?Confirmed ?Last Taken ?Type acyclovir 400 mg tablet 400 mg PO TID 11/08/19 01/22/23 07/28/21 History amitriptyline 25 mg tablet 25 mg PO DAILY 11/08/19 01/22/23 07/28/21 History atorvastatin 20 mg tablet 20 mg PO DAILY 11/08/19 01/22/23 07/28/21 History omeprazole 20 mg capsule,delayed 20 mg PO DAILY 11/08/19 01/22/23 07/28/21 History release promethazine 25 mg tablet 12.5 mg PO TID 11/08/19 01/22/23 11/08/19 History amlodipine 2.5 mg tablet 2.5 mg PO DAILY 07/21/22 01/22/23 Unknown History cetirizine 10 mg BYMOUTH DAILY 07/21/22 01/22/23 Unknown History irbesartan 150 1 tablet PO DAILY 01/22/23 01/22/23 Unknown History mg-hydrochlorothiazide 12.5 mg tablet Allergies Allergy/AdvReac Type Severity Reaction Status Date / Time sulfamethoxazole (From Allergy Severe Anaphylaxis Verified 03/29/25 17:14 Bactrim) trimethoprim (From Bactrim) Allergy Severe Anaphylaxis Verified 03/29/25 17:14 amoxicillin Allergy Nausea and Verified 03/29/25 17:14 Vomiting codeine Allergy Rash Verified 03/29/25 17:14 doxycycline (From Vibramycin) Allergy Hives Verified 03/29/25 17:14 Penicillins Allergy Rash Verified 03/29/25 17:14 hydrocodone AdvReac Nausea and Verified 03/29/25 17:14 Vomiting Review of Systems Review of Systems: All systems reviewed & are unremarkable except as noted in HPI and below Constitutional: Constitutional: Reports no additional constitutional complaints Eyes: Eyes: Reports no additional eye complaints ENT: Reports system reviewed and no additional complaints, except as documented Cardiovascular: Cardiovascular: Reports no additional cardiovascular complaints Respiratory: Respiratory: Reports no additional respiratory complaints Gastrointestinal: Gastrointestinal: Reports no additional gastrointestinal complaints Genitourinary: Genitourinary: Reports no additional female genitourinary complaints Musculoskeletal: Musculoskeletal: Reports no additional musculoskeletal complaints Integumentary/Breasts: Skin/Breast: Reports system reviewed and no additional complaints, except as docu Neurologic: Reports system reviewed and no additional complaints, except as documented Psychiatric: Psychiatric: Reports no additional psychiatric complaints Endocrine: Endocrine: Reports no additional endocrine complaints Hematologic/Lymphatic: Hematologic/Lymphatic: Reports no additional hematologic/lymphatic complaints Allergic/Immunologic: Allergic/Immunologic: Reports no additional allergic/immunologic complaints PMFSH Past Medical History Medical History Burning mouth syndrome Migraine Hyperlipidemia Hypertension Depression Surgical History Surgical History H/O knee surgery H/O hysterectomy for benign disease Social History Social History Smoking status: Never smoker Alcohol intake: never Substance use: never Exam Const: General: healthy appearing Nutritional Appearance: well nourished Orientation/consciousness: patient oriented x3 HENMT: Head: normal to inspection Ears: external ears normal Face/Nose/Sinus: Normal external nose present Eyes: Conjunctivae: conjunctivae normal Pupils: Equal, round and reactive pupils present EOM: EOMs intact bilaterally Neck: Neck: normal visual inspection, no lymphadenopathy and no meningeal signs Other: right lateral neck past spinal column into the soft tissue is tender with some muscle knots and this extends to the right lateral shoulder but not all way to the joint as pain and tenderness; all range of motion of neck is done without difficulty or concerns for cervical spine injury Chest: Chest palpation & inspection: normal inspection of the chest Resp: Effort & Inspection: normal respiratory effort and not labored Auscultation: clear to auscultation bilaterally and no crackles Cardio: Rate: regular rate Rhythm: regular rhythm Heart sounds: no murmurs GI: Inspection: non-distended GI Palp: Yes Soft to palpation and No Tenderness to palpation present (GI) Auscultation: normal bowel sounds : General: Yes bladder normal to palpation Back/Spine/Pelvis: Back: no CVA tenderness Skin: General skin exam: normal color and jaundice Rashes: no rashes Wounds: no wounds Neuro: General: patient oriented x3, moves all extremities, no meningeal signs and CN's II-XI intact bilaterally Extrem: General: normal to inspection Psych: Mental Status: mental status grossly normal Affect: normal affect Attitude: cooperative Course Vital Signs Vital signs: Vital Signs Temperature 36.4 C 07/26/25 09:46 Pulse Rate 94 07/26/25 09:46 Respiratory Rate 18 07/26/25 09:46 Blood Pressure 166/82 H 07/26/25 09:46 Pulse Oximetry 99 07/26/25 09:46 Oxygen Delivery Room Air 07/26/25 09:46 Temperature 36.4 C 07/26/25 09:46 Pulse Rate 94 07/26/25 09:46 Respiratory Rate 18 07/26/25 09:46 Blood Pressure 166/82 H 07/26/25 09:46 Pulse Oximetry 99 07/26/25 09:46 Oxygen Delivery Room Air 07/26/25 09:46 MDM - Neck Pain/Injury MDM Narrative Medical decision making narrative: patient is a 54-year-old female with right neck pain that starts after the spinal cord and column laterally. No injury. We will try Norflex and Toradol IM. No x-rays needed at this time. Discharge Plan Discharge Clinical Impression: Acute cervical myofascial strain Qualifiers: Encounter type: initial encounter Qualified Code(s): S16.1XXA - Strain of muscle, fascia and tendon at neck level, initial encounter Patient Disposition: Home Condition: Stable Instructions: Cervical Strain (ED) Patient Language: [place] Prescriptions: New orphenadrine citrate 100 mg tablet extended release 100 mg PO BID PRN (Reason: pain) Qty: 20 0RF No Action amlodipine 2.5 mg tablet 2.5 mg PO DAILY cetirizine 10 mg BYMOUTH DAILY irbesartan-hydrochlorothiazide 150-12.5 mg tablet 1 tablet PO DAILY atorvastatin 20 mg tablet 20 mg PO DAILY acyclovir 400 mg tablet 400 mg PO TID amitriptyline 25 mg tablet 25 mg PO DAILY promethazine 25 mg tablet 12.5 mg PO TID omeprazole 20 mg capsule,delayed release(DR/EC) 20 mg PO DAILY ciprofloxacin HCl [Cipro] 500 mg tablet 500 mg PO BID 7 Days Qty: 14 0RF Follow-up/Referrals: Darian Duarte M.D. [Primary Care Provider, Family Practice] Time of Disposition: 10:54
[2025-07-26] MEDS: KETOROLAC (*BKC) 60 MG/2 ML VIAL IM (10:18)
[2025-07-26] MEDS: ORPHENADRINE CITRATE 30 MG/ML 2 ML VIAL 60 MG IM (10:19)
[2025-07-26 10:59] VITALS: BP 150/73; PULSE 80; RESP 18; TEMP 36.9; O2SAT 99
== END 2025-07-26 10:59 | disposition home or self-care (01) ==
PROVIDERS: Emergency Provider Emergency Medicine; PCP Family Medicine
DX: S16.1XXA Strain of muscle, fascia and tendon at neck level, initial encounter (principal); E78.5 Hyperlipidemia, unspecified; I10 Essential (primary) hypertension; X58.XXXA Exposure to other specified factors, initial encounter
CPT/HCPCS: 96372; 99284; J1885; J2360